=== PATIENT | female | born 1955 | race Caucasian/White ===

== ENCOUNTER 2016-11-19 06:40 | Day surgery (SDC) | payer OTHER ==
[~2016-11-19] VITALS: Ht 149.9 cm
--- NOTE | 2016-11-20 08:33 | OR ---
ADMIT: 11/19/2016 RM/LOC: [facility] MR#: [id number] [id number] DEBORAH EWING [address] [place] [id number] Operative/Delivery Room Report SEX: F AGE: 61 : 1955 SURGERY DATE: 11/19/2016 SURGEON: Eva Abdi MD ESTHETIC DERMATOLOGIST: None. PREPROCEDURE DIAGNOSES: 1. Lumbar spondylosis. 2. Lumbago. POSTPROCEDURE DIAGNOSES: 1. Lumbar spondylosis. 2. Lumbago. PROCEDURE PERFORMED: Left L3, L4, L5, and S1 medial branch radiofrequency thermocoagulation. INDICATIONS FOR PROCEDURE: The patient is a pleasant female with history of chronic low back pain secondary to above mentioned diagnoses, come here for planned left lumbar radiofrequency ablation. ANESTHESIA: Local without sedation. ESTIMATED BLOOD LOSS: Zero. COMPLICATIONS: None immediately evident. DESCRIPTION OF THE PROCEDURE: After the patient was seen in the preoperative area, vitals signs were taken. Prior to the procedure, the risks, benefits, and alternative therapies were discussed at length. Patient consent was obtained and updated. The patient was taken to the fluoroscopy suite and placed on the fluoroscopy table in the prone position. Pressure points were padded to comfort, monitors applied, and a timeout performed. ADMIT: 11/19/2016 RM/LOC: [facility] MR#: [id number] [id number] DEBORAH EWING [address] [place] [id number] Operative/Delivery Room Report SEX: F AGE: 61 : 1955 Fluoroscopy was brought in to identify the transverse process of the left- sided L3, L4, L5, and S1. To anesthetize the skin, a spinal cannula was placed near the junction of pedicle and transverse process. Once we obtained appropriate parameters for sensory motor testing, we proceeded with radiofrequency thermocoagulation at each level, which consisted of 80 degrees for 90 seconds. The patient tolerated the procedure well. The patient did not feel any stimulation below her knees. The patient was discharged to post anesthesia care without any immediate complications. PLAN: Discharge instructions were given, followup scheduled. 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 Eva Abdi MD/ vivienne JOB #: [id number] CC: Eva Abdi, Attending Physician Dominick Shahid, Family Physician
== END 2016-11-19 08:44 | disposition home or self-care (01) ==
LOC: SSS 06:40
PROC: BR16YZZ Fluoroscopy of Lumbar Facet Joint(s) using Other Contrast (ICD-10-PCS; principal; 2016-11-19)
PROC: 3E0T3TZ Introduction of Destructive Agent into Peripheral Nerves and Plexi, Percutaneous Approach (ICD-10-PCS; principal; 2016-11-19)
DX: G89.29 Other chronic pain (principal); M47.816 Spondylosis without myelopathy or radiculopathy, lumbar region; Z98.890 Other specified postprocedural states; Z90.710 Acquired absence of both cervix and uterus; Z79.899 Other long term (current) drug therapy; Z88.0 Allergy status to penicillin; Z88.6 Allergy status to analgesic agent